=== PATIENT | male | born 1960 ===

== ENCOUNTER 2023-07-05 08:27 | Outpatient (CLI) | payer OTHER | END 2023-07-05 08:28 | disposition home or self-care (01) | LOC: ULT 08:27 | PROVIDERS: ATTEND Internal Medicine Nephrology | DX: I13.10 Hypertensive heart and chronic kidney disease without heart failure, with stage 1 through stage 4 chronic kidney disease, or unspecified chronic kidney disease (principal); E11.22 Type 2 diabetes mellitus with diabetic chronic kidney disease; N18.9 Chronic kidney disease, unspecified; N40.0 Benign prostatic hyperplasia without lower urinary tract symptoms; E66.9 Obesity, unspecified; E78.5 Hyperlipidemia, unspecified; M10.9 Gout, unspecified; M19.90 Unspecified osteoarthritis, unspecified site; R31.9 Hematuria, unspecified | CPT/HCPCS: 76770; 93975 ==